=== PATIENT | female | born 1945 | race Asian ===

== ENCOUNTER → 2017-04-06 | Outpatient (CLI) | payer MEDICARE, OTHER ==
[~2017-04-06] MED LIST: BIFI4CAP2 PO; BP PILL; CALC-635 PO; CALC500T76 PO; CHOL200038 PO; CHOL400C10 PO; CHOLESTEROL MED; ESTR0.4513 PO; FLU45SYR25 IM ONLY; FOLI-68 PO; GLUC-180 PO; LORA-1455 PO; MEMA10TA18 PO; MEMA1TAB2 PO; METH454P5 PO; NIAC50TA13 PO; OMEG-11 PO; OXYB5TAB86 PO; PANT40TA65 PO; PNEU0.5D3 IM; POLY17PO25 PO; RIVA1PAT3 TP; SIMV10TA98 PO; TRIA15CR40 TP; VAL80 PO; VALS160T22 PO; [UNRECOGNIZED DRUG - CODE] TD
--- NOTE | 2017-04-08 11:40 | RADIOLOGY IMAGING REPORT ---
FACILITY: [facility] [place] PATIENT NAME: WILLI MCCORMICK : [id number] MR: [id number] V: [id number] EXAM DATE: ORDERING PHYSICIAN: [employer] TECHNOLOGIST: Nu Sánchez PROCEDURE:BILATERAL DIGITAL SCREENING MAMMOGRAM WITH CAD ASSISTED INTERPRETATION & 3D BREAST TOMOSYNTHYSIS COMPARISON:Prior mammograms 04/05/16, 02/24/15, 01/04/13, 11/29/11, 08/27/10. INDICATIONS:screening FINDINGS: Moderately dense fibroglandular tissue is seen throughout the breasts. The parenchymal pattern has remained stable when allowing for difference in mammographic technique & patient positioning. There is no evidence of malignant appearing mass, malignant appearing calcification or secondary sign of malignancy in either breast. DIAGNOSTIC CATEGORY 1--NEGATIVE. RECOMMENDATIONS: ROUTINE MAMMOGRAM AND CLINICAL EVALUATION. IMPRESSION: BIRADS 1: Negative 1. No significant abnormality is seen Dictated by: Oliva Moya M.D. on 04/06/2017 at 16:11 Transcribed by: CANDACE on 04/07/2017 at 14:27 Approved by: Oliva Moya M.D. on 04/08/2017 at 11:39 [facility]
== END ==
LOC: MAMO 00:48
PROVIDERS: ATTEND Internal Medicine
DX: Z12.31 Encounter for screening mammogram for malignant neoplasm of breast (principal)
CPT/HCPCS: 77063; 77067

== ENCOUNTER → 2018-02-01 | Outpatient (CLI) | payer MEDICARE, OTHER ==
[~2018-02-01] MED LIST changes: +FLU180SY11 IM; +LOSA50TA74 PO; +[UNRECOGNIZED DRUG - CODE] TD
[2018-02-01 08:47] LABS: PLATELET COUNT, AUTOMATED 231 K/uL (150-450)
[2018-02-01 09:41] LABS: LDL CHOLESTEROL 69 mg/dl
== END ==
LOC: LAB 08:25
PROVIDERS: ATTEND Internal Medicine
DX: E78.00 Pure hypercholesterolemia, unspecified (principal); I10 Essential (primary) hypertension
CPT/HCPCS: 36415; 82040; 82247; 82310; 82374; 82435; 82465; 82565; 82947; 83718; 84075; 84132; 84155; 84295; 84450; 84460; 84478; 84520; 85025

== ENCOUNTER → 2018-04-04 | Outpatient (CLI) | payer MEDICARE, OTHER ==
[~2018-04-04] MED LIST changes: -LOSA50TA74 PO; +LOSA50TA80 PO
--- NOTE | 2018-04-04 16:16 | RADIOLOGY IMAGING REPORT ---
FACILITY: [facility] PATIENT NAME: Nathalia Garsia : 1945 MR: [id number] V: [id number] EXAM DATE: ORDERING PHYSICIAN: [employer] SAL[employer] TECHNOLOGIST: Location: [facility] Patient: Nathalia Garsia : 1945 Visit/Account:[id number] Date of Sevice: 04/04/2018 CHEST PA LAT HISTORY: 72-year-old female status post cholecystectomy 1 month ago now with coughing. COMPARISON: Chest x-ray March 04, 2018. FINDINGS: Cardiomediastinal contours: The heart is mildly enlarged. Lungs and pleura: Lung volumes are slightly lower than was noted on the prior study and there are fin dings suggestive of bibasilar atelectasis but there is no discrete infiltrate. There is no pleural e ffusion. Bones/soft tissues: There are no findings of a fracture. Surgical clips in the right upper quadrant are related the patient's recent cholecystectomy. IMPRESSION: 1. Lung volumes are slightly low and there are findings of bibasilar atelectasis, but there is no in filtrate or pleural effusion in this patient status post cholecystectomy 1 month ago. Report Dictated By: Jas Guzman MD at 04/04/2018 4:10 PM Report E-Signed By: Jas Guzman MD at 04/04/2018 4:11 PM WSN:[id number]
== END ==
LOC: RAD 15:11
PROVIDERS: ATTEND Internal Medicine
DX: I51.7 Cardiomegaly (principal); R91.8 Other nonspecific abnormal finding of lung field; Z90.49 Acquired absence of other specified parts of digestive tract
CPT/HCPCS: 71046